=== PATIENT | male | born 1960 | race Two or more races ===

== ENCOUNTER 2019-06-06 07:47 | Day surgery (SDC) | payer OTHER ==
[~2019-06-06 07:47] MED LIST: DELZICOL400 M1 PO; IMODIUM A-D2 M2 PO; ZANTAC 7575 MG PO
[2019-06-06] MEDS ORDERED: ULTRACET PO (10:43)
[2019-06-06] MEDS ORDERED: COLACE100 MG PO (10:43)
== END 2019-06-06 18:00 | disposition home or self-care (01) ==
LOC: CIR.AMB 07:47
DX: K60.3 Anal fistula (principal)

== ENCOUNTER 2019-07-21 05:01 | Day surgery (SDC) | payer OTHER ==
[~2019-07-21 05:01] MED LIST changes: +COLACE100 MG PO; +PEPCID20 MG PO; +ULTRACET PO; +VISTARIL25 MG PO
[2019-07-21] MEDS ORDERED: TRAM1TAB98 PO (09:22)
[2019-07-21] MEDS ORDERED: DUI500 PO (09:22)
== END 2019-07-21 13:50 | disposition home or self-care (01) ==
LOC: CIR.AMB 05:01
DX: M23.331 Other meniscus derangements, other medial meniscus, right knee (principal); M23.351 Other meniscus derangements, posterior horn of lateral meniscus, right knee; M65.861 Other synovitis and tenosynovitis, right lower leg

== ENCOUNTER 2024-01-01 12:09 | Inpatient (IN) | payer OTHER ==
[~2024-01-01] VITALS: Ht 177.8 cm; Wt 79.8 kg
[~2024-01-01 12:09] MED LIST changes: +DUI500 PO; +TRAM1TAB98 PO
[2024-01-01] MEDS ORDERED: INTESTINEX680 M1 (13:06)
[2024-01-01] MEDS ORDERED: LEVSIN0.125 MG (13:06)
[2024-01-01] MEDS ORDERED: 0.9 % SODIUM CHLORIDE 1,000 ML IV STA (15:13)
[2024-01-01] MEDS ORDERED: MEPERIDINE HCL/PF 50 MG/ML VIAL IM STA (15:14)
[2024-01-01 16:30] LABS: HEMATOCRIT 36.6 % (39.0-48.0); HEMOGLOBIN 12.3 g/dL (13-16.00); MEAN CELL VOLUME 89.9 fL (80.0-100.00); MEAN CORPUSCULAR HEMOGLOBIN 30.3 pg (27.00-32.0); MEAN CORPUSCULAR HGB CONC 33.7 g/dl (32.0-36.0); PLATELET COUNT 328 K/uL (150-450); RED BLOOD COUNT 4.07 M/uL (4.00-6.00); RED CELL DISTRIBUTION WIDTH 12.8 % (11.5-14.5)
[2024-01-01 17:02] LABS: URINE APPEARANCE Clear; URINE BILIRRUBIN Negative (NEGATIVE); URINE BLOOD Negative; URINE COLOR Yellow; URINE GLUCOSE Negative (NEGATIVE); URINE LEUKOCYTE Negative; URINE NITRATE Negative; URINE PROTEIN Negative (NEGATIVE); URINE UROBILINOGEN 0.2 E.U./dl
[2024-01-01 17:03] LABS: URINE BACTERIA 2.5 uL (0.0-1933); URINE EPITHELIAL CELLS 0.4 uL (0.0-38.8); URINE RBC 3.8 uL (0.0-20.8); URINE WBC 1.6 uL (0.0-23.2)
[2024-01-01 17:03] LABS: ALBUMIN 2.8 gm/dL (3.4-5.0); BILIRUBIN TOTAL 0.32 mg/dL (0.3-1.2); BILIRUBIN,CONJUGATED 0.11 mg/dL (0.0-0.2); BILIRUBIN,UNCONJUGATED 0.21 mg/dL (0.0-0.6); CALCIUM 9.3 mg/dL (8.5-10.1); CREATININE SERUM 0.79 mg/dL (0.70-1.30); GFR 99.06; POTASSIUM 3.7 mEq/L (3.5-5.1); TOTAL PROTEIN 7.2 gm/dL (6.4-8.2)
[2024-01-01] MEDS ORDERED: METRONIDAZOLE/SODIUM CHLORIDE 500 MG/100 ML PIGGYBACK IV STA (23:20)
[2024-01-01] MEDS ORDERED: MORPHINE SULFATE 4 MG/ML VIAL IV STA (23:55)
[2024-01-02] MEDS ORDERED: CIPROFLOXACIN IN 5 % DEXTROSE 200 ML IV SCH (04:32)
[2024-01-02] MEDS ORDERED: METRONIDAZOLE/SODIUM CHLORIDE 100 ML IV SCH (04:33)
[2024-01-02] MEDS ORDERED: MEPERIDINE HCL/PF 50 MG/ML VIAL IM STA (04:35)
[2024-01-02] MEDS ORDERED: PANTOPRAZOLE SODIUM 40 MG/VIAL VIAL IV SCH (17:27)
[2024-01-02] MEDS ORDERED: ACETAMINOPHEN 500 MG GEL..CAP PO PRN (17:30)
[2024-01-02] MEDS ORDERED: 0.9 % SODIUM CHLORIDE 1,000 ML IV SCH (17:30)
[2024-01-02] MEDS ORDERED: HYOSCYAMINE SULFATE 0.125 MG TAB.SUBL PO ONE (17:30)
[2024-01-02] MEDS ORDERED: ONDANSETRON HCL 4 MG in 0.9 % SODIUM CHLORIDE 50 ML IV PRN (17:30)
[2024-01-02] MEDS ORDERED: MEPERIDINE HCL/PF 25 MG/ML VIAL IM PRN (17:30)
[2024-01-02 20:42] LABS: INR 0.96; PARTIAL THROMBOPLASTIN TIME 30.1 SECONDS (22.0-34.0); PROTHROMBIN TIME 10.1 SECONDS (9.0-11.5)
[2024-01-02] MEDS ORDERED: MESALAMINE 400 MG CAP.DRTAB. PO SCH (21:00)
[2024-01-03] MEDS ORDERED: ENOXAPARIN SODIUM 40 MG/0.4 ML SYRINGE SUBCUTANEO SCH (09:00)
[2024-01-03 12:35] LABS: CALCIUM 9.8 mg/dL (8.5-10.1); CHOL HDL RATIO 3.7 (0-5.0); CREATININE SERUM 0.8 mg/dL (0.70-1.30); GFR 97.63; POTASSIUM 3.84 mEq/L (3.5-5.1)
[2024-01-03] MEDS ORDERED: MESALAMINE 400 MG CAP.DRTAB. PO SCH (13:00)
[2024-01-03] MEDS ORDERED: SIMETHICONE180 MG (15:54)
[2024-01-03] MEDS ORDERED: SERTRALINE HCL50 MG (15:54)
[2024-01-03] MEDS ORDERED: AMITRIPTYLINE H25 MG (15:54)
[2024-01-03] MEDS ORDERED: LOSARTAN POTASS50 MG (15:54)
[2024-01-03] MEDS ORDERED: AA 4.25%/CAL/LYTES/DEXT 5% 1,000 ML PERIFERAL SCH (17:00)
[2024-01-04] MEDS ORDERED: DIBUCAINE 30 GM TUBE ONE (13:58)
[2024-01-04] MEDS ORDERED: POVIDONE-IODINE 118 ML BOTT TOP ONE ×2 (13:58→14:30)
[2024-01-04] MEDS ORDERED: HEMOSTATIC MATRIX 1 KIT KIT TOP ONE ×2 (14:26→14:30)
[2024-01-04] MEDS ORDERED: BUPIVACAINE HCL 30 ML VIAL IJ ONE (14:30)
[2024-01-04] MEDS ORDERED: LIDOCAINE HCL 1%/Epi 20ML VIAL IJ ONE (14:30)
[2024-01-04] MEDS ORDERED: DIBUCAINE 30 GM TUBE RECTAL ONE (14:30)
[2024-01-04] MEDS ORDERED: MORPHINE SULFATE 4 MG/ML CARTRIDGE IV PRN (15:30)
[2024-01-04] MEDS ORDERED: METRONIDAZOLE/SODIUM CHLORIDE 500 MG/100 ML PIGGYBACK IV ONE (17:54)
[2024-01-06 08:34] LABS: HEMATOCRIT 33.2 % (39.0-48.0); HEMOGLOBIN 11.4 g/dL (13-16.00); MEAN CELL VOLUME 88.5 fL (80.0-100.00); MEAN CORPUSCULAR HEMOGLOBIN 30.4 pg (27.00-32.0); MEAN CORPUSCULAR HGB CONC 34.3 g/dl (32.0-36.0); PLATELET COUNT 338 K/uL (150-450); RED BLOOD COUNT 3.75 M/uL (4.00-6.00); RED CELL DISTRIBUTION WIDTH 12.6 % (11.5-14.5)
[2024-01-06 08:40] LABS: ALBUMIN 2.5 gm/dL (3.4-5.0); BILIRUBIN TOTAL 0.28 mg/dL (0.3-1.2); CALCIUM 8.7 mg/dL (8.5-10.1); CREATININE SERUM 0.6 mg/dL (0.70-1.30); GFR 136.07; GLOBULINA 3.9 G/DL (2.4-3.5); POTASSIUM 3.82 mEq/L (3.5-5.1); TOTAL PROTEIN 6.4 gm/dL (6.4-8.2)
[2024-01-06 10:21] LABS: C-REACTIVE PROTEIN 1.35 MG/DL (0.00-0.29)
[2024-01-07 07:20] LABS: HEMATOCRIT 34.9 % (39.0-48.0); HEMOGLOBIN 11.8 g/dL (13-16.00); MEAN CELL VOLUME 87.4 fL (80.0-100.00); MEAN CORPUSCULAR HEMOGLOBIN 29.5 pg (27.00-32.0); MEAN CORPUSCULAR HGB CONC 33.8 g/dl (32.0-36.0); PLATELET COUNT 331 K/uL (150-450); RED BLOOD COUNT 3.99 M/uL (4.00-6.00); RED CELL DISTRIBUTION WIDTH 12.9 % (11.5-14.5)
[2024-01-07 07:48] LABS: INR 1.04; PARTIAL THROMBOPLASTIN TIME 30.4 SECONDS (22.0-34.0); PROTHROMBIN TIME 10.9 SECONDS (9.0-11.5)
[2024-01-07 07:50] LABS: ALBUMIN 2.5 gm/dL (3.4-5.0); ALKALINE PHOSPHATASE 72 U/L (50-136); ALT/SGPT 50 U/L (12-78); ANION GAP 7 (10.0-20.0); AST/SGOT 57 U/L (15-37); BILIRUBIN TOTAL 0.21 mg/dL (0.3-1.2); BILIRUBIN,CONJUGATED < 0.10 mg/dL (0.0-0.2); BILIRUBIN,UNCONJUGATED 0.11 mg/dL (0.0-0.6); BLOOD UREA NITROGEN 9 mg/dL (7-18); BUN CREA RATIO 14 (7.0-25.0); CALCIUM 8.8 mg/dL (8.5-10.1); CARBON DIOXIDE 31 mEq/L (21-32); CHLORIDE 108 mmol/L (98-107); CHOL HDL RATIO 3.3 (0-5.0); CHOLESTEROL 105 mg/dL (0-200); CREATININE SERUM 0.65 mg/dL (0.70-1.30); GFR 124.07; GLOBULINA 3.9 G/DL (2.4-3.5); GLUCOSE FASTING 112 mg/dL (65-100); HDL 32 mg/dl (40-60); LDL 53 mg/dl (0-130); OSMOLALITY SERUM 283 MOSM/KG (275-295); POTASSIUM 3.99 mEq/L (3.5-5.1); SODIUM 142 mmol/L (136-145); TOTAL PROTEIN 6.4 gm/dL (6.4-8.2); TRIGLYCERIDES 100 mg/dL (0-150); VLDL 20 (0-39)
[2024-01-07 10:28] LABS: UREA CLEARANCE 40.8 ML/MIN
[2024-01-07] MEDS ORDERED: CEFTRIAXONE SODIUM 2,000 MG VIAL IV SCH (12:00)
[2024-01-08] MEDS ORDERED: METROnidazole 500 MG TABLET PO SCH (17:00)
== END 2024-01-10 13:39 | disposition home or self-care (01) | DRG 394 ==
LOC: ER 12:10 → SURG 01-02 17:55 → SEC-K 01-02 17:55 → SURG 01-02 20:03
PROVIDERS: General Practice; Surgery; ADMIT Internal Medicine; ATTEND Internal Medicine
PROC: BW21YZZ Computerized Tomography (CT Scan) of Abdomen and Pelvis using Other Contrast (ICD-10-PCS; 2024-01-01)
PROC: 02HV33Z Insertion of Infusion Device into Superior Vena Cava, Percutaneous Approach (ICD-10-PCS; 2024-01-03)
PROC: 0D9P3ZZ Drainage of Rectum, Percutaneous Approach (ICD-10-PCS; 2024-01-04)
PROC: 3E0T3BZ Introduction of Anesthetic Agent into Peripheral Nerves and Plexi, Percutaneous Approach (ICD-10-PCS; 2024-01-04)
PROC: 0J9B3ZX Drainage of Perineum Subcutaneous Tissue and Fascia, Percutaneous Approach, Diagnostic (ICD-10-PCS; principal; 2024-01-04 12:00)
DX: K61.1 Rectal abscess (principal); K51.314 Ulcerative (chronic) rectosigmoiditis with abscess